=== PATIENT | female | born 1985 | race Caucasian/White ===

== ENCOUNTER 2019-02-26 05:05 | Inpatient (IN) | payer OTHER, MEDICAID ==
[2019-02-26] MEDS: LACTATED RINGERS 1,000 ML IV SCH ×5 (05:20→21:34)
[2019-02-26] MEDS ORDERED: CITRIC ACID/SODIUM CITRATE SOL PO SCH (06:00)
[2019-02-26] MEDS ORDERED: MORPHINE SULFATE 0.5 MG/ML SOL ONE (06:30)
[2019-02-26] MEDS ORDERED: ONDANSETRON HCL 4 MG/2 ML SOL ONE (06:59)
[2019-02-26] MEDS ORDERED: EPHEDRINE SULFATE 50 MG/ML SOL ONE (06:59)
[2019-02-26] MEDS ORDERED: CEFAZOLIN SODIUM 1 GM PDS IV ONE (07:00)
[2019-02-26] MEDS ORDERED: OXYTOCIN 10000 MU/ML SOL ONE (07:09)
[2019-02-26] MEDS ORDERED: [UNRECOGNIZED DRUG - OTHER] IV ONE (07:11)
[2019-02-26 07:32] LABS: APPEARANCE,URINE Clear; BILIRUBIN,URINE NEGATIVE (NEGATIVE); COLOR,URINE Yellow; GLUCOSE, URINE (UA) NEGATIVE (NEGATIVE); KETONES,URINE TRACE (NEGATIVE); LEUKOCYTE ESTERASE ,URINE 2+ (NEGATIVE); NITRATE,URINE NEGATIVE (NEGATIVE); OCCULT BLOOD,URINE NEGATIVE (NEG-TRACE); PH,URINE 5.5; UROBILINOGEN,URINE 0.2 (0.2-1.0 EU)
[2019-02-26 07:39] LABS: BACTERIA 2+ (< 1+); CRYSTALS NEGATIVE (0-3 AVE/HPF); RBC,URINE 0-2 (0-3AV/HPF)
[2019-02-26] MEDS ORDERED: METHYLERGONOVINE MALEATE 0.2 MG TAB PO PRN (08:01)
[2019-02-26] MEDS ORDERED: DIPHENHYDRAMINE 25 MG CAP PO PRN (08:01)
[2019-02-26] MEDS ORDERED: FLEET ENEMA PR PRN (08:01)
[2019-02-26] MEDS ORDERED: BISACODYL 10 MG SUP PR PRN (08:01)
[2019-02-26] MEDS ORDERED: TEMAZEPAM 15MG 15 MG CAP PO PRN (08:01)
[2019-02-26] MEDS ORDERED: WITCH HAZEL 1 EA PAD TOP PRN (08:01)
[2019-02-26] MEDS ORDERED: BENZOCAINE/MENTHOL 1 SPR TOP PRN (08:01)
[2019-02-26] MEDS: ONDANSETRON HCL 4 MG/2 ML SOL IV PRN ×3 (09:27→15:06)
[2019-02-26] MEDS: DOCUSATE SODIUM 100 MG SGL PO SCH ×2 (09:29→21:31)
[2019-02-26] MEDS: KETOROLAC TROMETHAMINE 30 MG/ML SOL IV PRN ×2 (10:33→19:05)
[2019-02-26] MEDS ORDERED: ONDANSETRON HCL 4 MG/2 ML SOL IV PRN (18:43)
[2019-02-27] MEDS: KETOROLAC TROMETHAMINE 30 MG/ML SOL IV PRN (02:36)
[2019-02-27] MEDS: LACTATED RINGERS 1,000 ML IV SCH ×2 (06:42→16:22)
[2019-02-27] MEDS: FERROUS GLUCONATE 324 MG TABLET PO SCH (08:49)
[2019-02-27] MEDS: DOCUSATE SODIUM 100 MG SGL PO SCH ×2 (08:49→20:32)
[2019-02-27 12:13] LABS: ABO AB
[2019-02-27 12:19] LABS: RH TYPE Negative
[2019-02-27] MEDS: IBUPROFEN 600 MG TAB PO PRN ×2 (13:57→20:32)
[2019-02-27] MEDS: APAP/HYDROCODONE 1 EACH TABLET PO PRN ×2 (13:57→18:32)
[2019-02-28] MEDS: APAP/HYDROCODONE 1 EACH TABLET PO PRN ×5 (00:01→21:12)
[2019-02-28] MEDS: IBUPROFEN 600 MG TAB PO PRN ×3 (02:46→19:34)
[2019-02-28] MEDS: FERROUS GLUCONATE 324 MG TABLET PO SCH (09:51)
[2019-02-28] MEDS: DOCUSATE SODIUM 100 MG SGL PO SCH ×2 (09:51→21:07)
[2019-02-28] MEDS ORDERED: FOLIC ACID 1 MG TAB PO SCH (21:00)
[2019-02-28] MEDS ORDERED: MULTIVITAMIN2 1 EA TAB PO SCH (21:00)
[2019-03-01] MEDS: APAP/HYDROCODONE 1 EACH TABLET PO PRN ×2 (06:02→12:35)
[2019-03-01] MEDS: IBUPROFEN 600 MG TAB PO PRN ×2 (06:02→12:36)
[2019-03-01 06:09] VITALS: BP 122/77; PULSE 90; RESP 20; TEMP 98.2; O2SAT 98
[2019-03-01] MEDS: DOCUSATE SODIUM 100 MG SGL PO SCH (08:53)
[2019-03-01] MEDS: FERROUS GLUCONATE 324 MG TABLET PO SCH (08:53)
== END 2019-03-01 13:55 | disposition home or self-care (01) | DRG 788 ==
LOC: OBSVTOIN 05:05 → OB 05:05
PROVIDERS: ADMIT Family Medicine; ATTEND Family Medicine
PROC: 10D00Z1 Extraction of Products of Conception, Low, Open Approach (ICD-10-PCS; principal; 2019-02-26 07:00)
DX: O75.82 Onset (spontaneous) of labor after 37 completed weeks of gestation but before 39 completed weeks gestation, with delivery by (planned) cesarean section (principal); O26.893 Other specified pregnancy related conditions, third trimester; Z67.91 Unspecified blood type, Rh negative; Z37.0 Single live birth
CPT/HCPCS: 36415; 59025; 81001; 85018; 86900; 86901; 87088; J0690; J1885; J2274; J2405; J2590; A9270-GY; J3490

== ENCOUNTER 2019-05-07 07:16 | Day surgery (SDC) | payer OTHER, MEDICAID ==
[2019-05-07] MEDS ORDERED: FENTANYL 100MCG/2ML SOL ONE ×2 (08:02→09:12)
[2019-05-07] MEDS ORDERED: LIDOCAINE HCL 1% MPF 30 SOL ONE (08:03)
[2019-05-07] MEDS ORDERED: PROPOFOL 500 MG/50 ML EMU IV ONE (08:03)
[2019-05-07] MEDS: BUPIVACAINE/EPI 0.5% 10 ML SOL INFIL ONE ×3 (09:25→09:48)
[2019-05-07 10:41] VITALS: BP 112/58; PULSE 62; RESP 20; TEMP 97.4; O2SAT 99
== END 2019-05-07 11:07 | disposition home or self-care (01) | DRG 607 ==
LOC: SURG 07:16
PROVIDERS: ATTEND Surgery
DX: D17.0 Benign lipomatous neoplasm of skin and subcutaneous tissue of head, face and neck (principal); D16.7 Benign neoplasm of ribs, sternum and clavicle; D22.5 Melanocytic nevi of trunk
CPT/HCPCS: 99001; G0168; J3010; J2001; J2704